=== PATIENT | female | born 1985 | race African-American/Black ===

== ENCOUNTER 2022-08-06 04:17 | Day surgery (SDC) | payer OTHER ==
[2022-08-04 20:12] VITALS: BMI 26.3
[2022-08-06 06:38] LABS: BASO % 0.9 % (0-2.0); HEMATOCRIT 39.6 % (32.4-45.2); HEMOGLOBIN 12.7 GM/dL (10.7-15.3); LYMPH % 36.7 % (8-40); MCH 27.6 pg (25.7-33.7); MCHC 32.1 g/dl (32.0-36.0); MEAN CELL VOLUME 86.2 fl (80-96); MEAN PLT VOLUME 8.9 fl (7.5-11.1); MONO % 8.9 % (3.8-10.2); NEUT % 52.5 % (42.8-82.8); PLATELET COUNT 260 10^3/uL (134-434); RBC 4.59 M/mm3 (3.60-5.2); WHITE BLOOD COUNT 6.2 K/mm3 (4.0-10.0)
[2022-08-06] MEDS ORDERED: MIDAZOLAM HCL 2 MG/2 ML SINGLE DOSE VIAL ONE (08:40)
[2022-08-06] MEDS ORDERED: PROMETHAZINE HCL 25 MG/1 ML VIAL IVPB PRN (10:21)
[2022-08-06] MEDS ORDERED: oxyCODONE HCL 5 MG TABLET PO PRN (10:21)
[2022-08-06] MEDS ORDERED: ONDANSETRON 4 MG/2 ML VIAL IVPUSH PRN (10:21)
[2022-08-06] MEDS ORDERED: LACTATED RINGERS SOLUTION 1,000 ML IV SCH (10:30)
[2022-08-06 12:18] VITALS: RESP 18; TEMP 98.4
[2022-08-06 12:57] VITALS: BP 122/72; PULSE 76
== END 2022-08-06 14:15 | disposition home or self-care (01) ==
LOC: JASU-SURG 04:17
PROVIDERS: ATTEND Obstetrics & Gynecology Maternal & Fetal Medicine
PROC: 0UDB7ZZ Extraction of Endometrium, Via Natural or Artificial Opening (ICD-10-PCS; principal; 2022-08-06 08:30)
DX: N88.2 Stricture and stenosis of cervix uteri (principal); N97.9 Female infertility, unspecified; N72 Inflammatory disease of cervix uteri
CPT/HCPCS: 36415; 81025; 85025; 86850; 86900; 86901; 88305-TC; 94760

== ENCOUNTER 2024-10-10 06:17 | Inpatient (IN) | payer OTHER ==
[2024-10-09 17:44] VITALS: BMI 25.8
[2024-10-10] MEDS ORDERED: ONDANSETRON 4 MG/2 ML VIAL IVPUSH PRN (08:38)
[2024-10-10] MEDS ORDERED: MIDAZOLAM HCL 2 MG/2 ML SINGLE DOSE VIAL ONE (08:56)
[2024-10-10] MEDS ORDERED: LIDOCAINE HCL/PF 2% SDV 5ML VIAL ONE (08:57)
[2024-10-10] MEDS ORDERED: PROPOFOL 20 ML ONE ×5 (08:58→11:47)
[2024-10-10] MEDS ORDERED: ROCURONIUM BROMIDE 50 MG/5 ML SYRINGE ONE ×2 (08:59→10:09)
[2024-10-10] MEDS ORDERED: METOCLOPRAMIDE HCL INJECTION 10 MG/2 ML VIAL ONE (09:21)
[2024-10-10] MEDS ORDERED: METHYLENE BLUE 50 MG/10 ML AMPUL ONE (09:30)
[2024-10-10] MEDS ORDERED: DEXAMETHASONE SOD PHOSPHATE 4 MG/1 ML VIAL ONE ×2 (09:42)
[2024-10-10] MEDS ORDERED: DEXMEDETOMIDINE HCL 200 MCG/2 ML IVPB ONE (10:02)
[2024-10-10] MEDS ORDERED: ACETAMINOPHEN INJECTION 100 ML ONE (10:02)
[2024-10-10] MEDS ORDERED: MAGNESIUM SULF 50% (8.12 MEQ/2 ML-1 GM VIAL) ONE (10:35)
[2024-10-10] MEDS ORDERED: KETAMINE HCL 200 MG/20 ML VIAL ONE (10:36)
[2024-10-10] MEDS ORDERED: ONDANSETRON 4 MG/2 ML VIAL ONE (11:56)
[2024-10-10] MEDS ORDERED: KETOROLAC TROMETHAMINE 30 MG/1 ML VIAL ONE (11:56)
[2024-10-10] MEDS ORDERED: SUGAMMADEX SODIUM 200 MG/2 ML VIAL ONE (11:57)
[2024-10-11] MEDS: LACTATED RINGERS SOLUTION 1,000 ML IV SCH (01:00)
[2024-10-11 05:56] VITALS: TEMP 98.1
[2024-10-11] MEDS: IBUPROFEN 600 MG TABLET (FP) PO PRN (08:14)
[2024-10-11 08:58] LABS: ABSOLUTE IMMATURE GRANULOCYTES 0.05 x10^3/uL (0.0-0.031); BASOPHILS # 0.01 x10^3/uL (0.01-0.08); EOSINOPHIL % 0.0 % (0.7-5.8); EOSINOPHILS # 0.00 x10^3/uL (0.04-0.36); MCHC 30.1 g/dl (32.2-35.5); MEAN CELL VOLUME 83.0 fl (79.4-94.8); MEAN PLT VOLUME 10.7 fl (9.4-12.3); MONOCYTE # 0.74 x10^3/uL (0.24-0.86); MONOCYTE % 7.3 % (4.7-12.5); RDW 20.9 % (12.1-16.8)
[2024-10-11] MEDS: ACETAMINOPHEN 325 MG TABLET (FP) PO PRN (09:42)
[2024-10-11 11:21] VITALS: BP 101/74; PULSE 92
[2024-10-11 12:04] VITALS: RESP 17
== END 2024-10-11 18:00 | disposition home or self-care (01) | DRG 519 ==
LOC: J2C 06:17 → J3W 15:39
PROVIDERS: ADMIT Obstetrics & Gynecology Maternal & Fetal Medicine; ATTEND Obstetrics & Gynecology Maternal & Fetal Medicine
PROC: 0DNW0ZZ Release Peritoneum, Open Approach (ICD-10-PCS; 2024-10-10)
PROC: 0UB90ZZ Excision of Uterus, Open Approach (ICD-10-PCS; principal; 2024-10-10 09:00)
DX: D25.1 Intramural leiomyoma of uterus (principal); N73.6 Female pelvic peritoneal adhesions (postinfective); N94.6 Dysmenorrhea, unspecified; N80.00 Endometriosis of the uterus, unspecified; N92.1 Excessive and frequent menstruation with irregular cycle
CPT/HCPCS: 36415; 80053; 85025; 85610; 86850; 86900; 86901; 88304-TC; 88305-TC; 94760; Q9968